=== PATIENT | male | born 1955 ===

== ENCOUNTER → 2020-07-01 09:20 | Outpatient (CLI) | payer OTHER, SELFPAY ==
--- NOTE | ~2020-07-01 | MR_ITS ---
EXAMINATION: MR lower leg RT wo con DATE: 07/01/2020 10:07 INDICATION: Right lower leg pain post fall 3 weeks prior TECHNIQUE: Magnetic resonance imaging (MRI) of the right lower leg was performed intravenous contrast . Sequences included axial T1-weighted FSE, axial T2-weighted FS FSE, coronal T1-weighted FSE, coron al fluid sensitive FSE STIR , sagittal T1-weighted FSE and sagittal fluid sensitive FSE STIR. The co ntralateral left lower leg is included on the coronal images. COMPARISON: None. FINDINGS: Nondisplaced fracture across the proximal metaphysis of the right tibia. There is soft tissue edema i n the immediately surrounding musculature including the proximal deep margin of the lateral head of t he gastrocnemius, the proximal peroneus longus and brevis muscle bellies and to lesser degree at the muscles in the anterior compartment and the tibialis posterior muscle. More prominent edema, thickeni ng and architectural distortion to the muscle fibers along the proximal fibular origin of the soleus muscle which is located at the level of the tear and suggests likely associated partial tear of the s oleus muscle at this level. No evident involvement of the more distal tibiofibular syndesmosis. Asses sment at the ankle is markedly limited by field inhomogeneity artifact and poor signal at the caudal margin field of imaging. However there does not appear to be an ankle joint effusion or evident fract ure at the medial malleolus suggesting Maisonneuve fracture. There is relatively symmetric mild fatty atrophy of the musculature in both calves. IMPRESSION: 1. Nondisplaced fracture at the proximal metaphyseal region of the right tibia with likely associated partial tear at the cephalad fibular attachment of the soleus. 2. A severe mild edema in some of the additional surrounding musculature which could represent reacti ve edema directly related to the fracture, muscle contusion or less likely mild strain. Reviewed, dictated and finalized at location A. IMPRESSION: 1. Nondisplaced fracture at the proximal metaphyseal region of the right tibia with likely associated partial tear at the cephalad fibular attachment of the s oleus. 2. A severe mild edema in some of the additional surrounding musculature which could represent reactive edema directly related to the fracture, muscle contusi on or less likely mild strain.
== END ==
PROVIDERS: Visit Provider Family Medicine
DX: S82.101A Unspecified fracture of upper end of right tibia, initial encounter for closed fracture (principal); W19.XXXA Unspecified fall, initial encounter; R60.9 Edema, unspecified
CPT/HCPCS: 73718